=== PATIENT | female | born 1970 | race Caucasian/White ===

== ENCOUNTER 2019-03-10 22:08 | Emergency (ER) | payer OTHER | END 2019-03-10 23:28 | disposition home or self-care (01) | LOC: SCSER 22:08 | DX: S61.012A Laceration without foreign body of left thumb without damage to nail, initial encounter (principal); F32.9 Major depressive disorder, single episode, unspecified; F90.9 Attention-deficit hyperactivity disorder, unspecified type; Z79.899 Other long term (current) drug therapy; W25.XXXA Contact with sharp glass, initial encounter | CPT/HCPCS: 12001 ==

== ENCOUNTER 2019-03-13 16:35 | Emergency (ER) | payer OTHER ==
[2019-03-13] MEDS ORDERED: Adacel (T-DAP) 0.5 ML SYRINGE ONE (16:46)
[2019-03-13] MEDS ORDERED: Bacitracin 1 PK ONE (16:48)
== END 2019-03-13 17:03 | disposition home or self-care (01) ==
LOC: SCSER 16:35
DX: S61.012A Laceration without foreign body of left thumb without damage to nail, initial encounter (principal); F32.9 Major depressive disorder, single episode, unspecified; F90.9 Attention-deficit hyperactivity disorder, unspecified type; Z79.899 Other long term (current) drug therapy; W25.XXXA Contact with sharp glass, initial encounter
CPT/HCPCS: 90471; 90715